=== PATIENT | female | born 1985 | race Caucasian/White ===

== ENCOUNTER → 2023-10-17 20:01 | Outpatient (REF) | payer OTHER, SELFPAY | LOC: MRI 20:01 | PROVIDERS: ATTENDING PHYSICIAN Family Medicine | DX: G43.109 Migraine with aura, not intractable, without status migrainosus (principal) | CPT/HCPCS: 70553; A9575 ==

== ENCOUNTER → 2024-08-20 08:17 | Outpatient (REF) | payer OTHER, SELFPAY | LOC: RAD 08:17 | PROVIDERS: ATTENDING PHYSICIAN Family Medicine | DX: R22.1 Localized swelling, mass and lump, neck (principal) | CPT/HCPCS: 76536; 93880 ==

== ENCOUNTER → 2024-10-08 11:20 | Outpatient (REF) | payer OTHER, SELFPAY | LOC: RAD 11:20 | PROVIDERS: ATTENDING PHYSICIAN Family Medicine | DX: M54.50 Low back pain, unspecified (principal) | CPT/HCPCS: 72110 ==

== ENCOUNTER → 2024-11-03 10:09 | Outpatient (REF) | payer OTHER, SELFPAY | LOC: MRI 3T 10:09 | PROVIDERS: ATTENDING PHYSICIAN Physician Assistant; FAMILY PHYSICIAN Family Medicine | DX: M54.16 Radiculopathy, lumbar region (principal) | CPT/HCPCS: 72148 ==